=== PATIENT | male | born 1990 | race Caucasian/White ===

== ENCOUNTER → 2019-03-30 | Outpatient (CLI) | payer MEDICARE | LOC: LAB EV 13:44 → LAB SHORT 13:44 | DX: R53.83 Other fatigue (principal) | CPT/HCPCS: 84443 ==

== ENCOUNTER 2023-03-07 04:37 | Emergency (ER) | payer OTHER ==
[~2023-03-07] VITALS: Ht 182.9 cm; Wt 158.8 kg
[2023-03-07] MEDS ORDERED: PROP10 PO (04:59)
[2023-03-07] MEDS ORDERED: GABA100 PO (04:59)
[2023-03-07] MEDS ORDERED: CLON.2 PO (04:59)
[2023-03-07] MEDS ORDERED: IBU800 M1 PO (05:00)
[2023-03-07 06:01] VITALS: BP 135/86
== END 2023-03-07 05:55 | disposition home or self-care (01) ==
LOC: ER 04:37
DX: R00.2 Palpitations (principal); I10 Essential (primary) hypertension; F17.210 Nicotine dependence, cigarettes, uncomplicated; Z79.899 Other long term (current) drug therapy
CPT/HCPCS: 93005; 93010

== ENCOUNTER → 2023-05-06 | Outpatient (CLI) | payer OTHER ==
[~2023-05-06] MED LIST: CLON.2 PO; GABA100 PO; IBU800 M1 PO; PROP10 PO
[2023-05-06 10:28] LABS: BASOPHILS ABSOLUTE AUTO 0.07 K/mm3 (0.00-0.23); BASOPHILS PERCENT AUTO 1 % (0-2); EOSINOPHILS PERCENT AUTO 1 % (0-6); Hematocrit 46.7 % (37.0-53.0); Hemoglobin 16.1 g/dL (13.5-17.5); IMMATURE GRAN ABSOLUTE AUTO 0.03 K/mm3 (0.00-0.10); IMMATURE GRAN PERCENT AUTO 0 % (0-1); LYMPHOCYTES ABSOLUTE AUTO 2.42 K/mm3 (0.84-5.20); LYMPHOCYTES PERCENT AUTO 29 % (21-46); MONOCYTES ABSOLUTE AUTO 0.74 K/mm3 (0.16-1.47); MONOCYTES PERCENT AUTO 9 % (4-13); Mean Corpuscular HGB 32.7 pg (26.0-34.0); Mean Corpuscular HGB Conc 34.5 g/dL (31.5-36.5); Mean Corpuscular Volume 95 fL (80-100); Mean Platelet Volume 8.8 fL (9.1-12.4); NEUTROPHILS ABSOLUTE AUTO 4.99 K/mm3 (1.96-9.15); NEUTROPHILS PERCENT AUTO 60 % (41-73); Platelet Count 231 K/mm3 (150-400); RDW Coefficient Variation 13.1 % (11.7-14.2); RDW Standard Deviation 45.4 fL (35.1-46.3); Red Blood Cell Count 4.93 M/mm3 (4.30-5.90); White Blood Cell Count 8.35 K/mm3 (4.00-11.30)
[2023-05-06 10:50] LABS: Albumin, Blood 3.8 g/dL (3.4-5.0); Albumin/Globulin Ratio 0.9 (0.8-1.8); Bilirubin, Total 0.5 mg/dL (0.1-1.0); Bun/Creatinine Ratio 6.3 (12.0-20.0); Calcium, Blood 8.9 mg/dL (8.5-10.1); Creatinine, Blood 0.96 mg/dL (0.60-1.20); Globulin, Blood 4.2 g/dL (2.2-4.0); Potassium, Blood 3.5 mmol/L (3.5-5.5)
== END ==
LOC: LAB SHORT 10:23 → LAB 10:23
PROVIDERS: Physician Assistant Medical
DX: R00.0 Tachycardia, unspecified (principal)
CPT/HCPCS: 80053; 83735; 84484; 85025

== ENCOUNTER 2023-05-10 22:11 | Emergency (ER) | payer OTHER ==
[~2023-05-10] VITALS: Ht 182.9 cm; Wt 154.2 kg
[2023-05-10 22:57] LABS: BASOPHILS ABSOLUTE AUTO 0.06 K/mm3 (0.00-0.23); BASOPHILS PERCENT AUTO 1 % (0-2); EOSINOPHILS ABSOLUTE AUTO 0.08 K/mm3 (0.00-0.68); EOSINOPHILS PERCENT AUTO 1 % (0-6); Hematocrit 46.6 % (37.0-53.0); Hemoglobin 16.1 g/dL (13.5-17.5); IMMATURE GRAN ABSOLUTE AUTO 0.06 K/mm3 (0.00-0.10); IMMATURE GRAN PERCENT AUTO 1 % (0-1); LYMPHOCYTES ABSOLUTE AUTO 3.11 K/mm3 (0.84-5.20); LYMPHOCYTES PERCENT AUTO 30 % (21-46); MONOCYTES ABSOLUTE AUTO 0.84 K/mm3 (0.16-1.47); MONOCYTES PERCENT AUTO 8 % (4-13); Mean Corpuscular HGB 31.9 pg (26.0-34.0); Mean Corpuscular HGB Conc 34.5 g/dL (31.5-36.5); Mean Corpuscular Volume 92 fL (80-100); Mean Platelet Volume 9.1 fL (9.1-12.4); NEUTROPHILS ABSOLUTE AUTO 6.08 K/mm3 (1.96-9.15); NEUTROPHILS PERCENT AUTO 59 % (41-73); Platelet Count 248 K/mm3 (150-400); RDW Coefficient Variation 12.7 % (11.7-14.2); RDW Standard Deviation 43.2 fL (35.1-46.3); Red Blood Cell Count 5.05 M/mm3 (4.30-5.90); White Blood Cell Count 10.23 K/mm3 (4.00-11.30)
[2023-05-10 23:16] LABS: Albumin, Blood 3.7 g/dL (3.4-5.0); Albumin/Globulin Ratio 0.9 (0.8-1.8); Bilirubin, Total 0.5 mg/dL (0.1-1.0); Bun/Creatinine Ratio 17.3 (12.0-20.0); Creatinine, Blood 0.92 mg/dL (0.60-1.20); Magnesium, Blood 1.9 mg/dL (1.6-2.4); Potassium, Blood 3.3 mmol/L (3.5-5.5); Total Protein, Blood 7.7 g/dL (6.4-8.2)
[2023-05-10 23:50] LABS: Free Thyroxine 0.94 ng/dL (0.70-1.60); Thyroid Stimulating Hormone 5.14 uIU/mL (0.360-4.800); Triiodothyronine, Free 3.47 pg/mL (2.18-3.98)
[2023-05-11 02:00] VITALS: BP 129/89
== END 2023-05-11 02:55 | disposition home or self-care (01) ==
LOC: ER 22:11
PROVIDERS: Student in an Organized Health Care Education/Training Program
DX: R07.9 Chest pain, unspecified (principal); E87.6 Hypokalemia; Z79.899 Other long term (current) drug therapy; I10 Essential (primary) hypertension; G47.30 Sleep apnea, unspecified; F17.290 Nicotine dependence, other tobacco product, uncomplicated; E66.9 Obesity, unspecified
CPT/HCPCS: 71046; 80053; 83735; 84439; 84443; 84481; 84484; 85025; 93005; 93010; 96361; 96374; 99285-25; A9270; J1885; J2405; J7030

== ENCOUNTER 2023-07-03 06:43 | Emergency (ER) | payer OTHER ==
[~2023-07-03] VITALS: Ht 182.9 cm; Wt 154.2 kg
[2023-07-03 08:18] LABS: BASOPHILS ABSOLUTE AUTO 0.05 K/mm3 (0.00-0.23); BASOPHILS PERCENT AUTO 1 % (0-2); EOSINOPHILS ABSOLUTE AUTO 0.11 K/mm3 (0.00-0.68); EOSINOPHILS PERCENT AUTO 2 % (0-6); Hematocrit 41.7 % (37.0-53.0); Hemoglobin 14.3 g/dL (13.5-17.5); IMMATURE GRAN ABSOLUTE AUTO 0.03 K/mm3 (0.00-0.10); IMMATURE GRAN PERCENT AUTO 0 % (0-1); LYMPHOCYTES ABSOLUTE AUTO 2.09 K/mm3 (0.84-5.20); LYMPHOCYTES PERCENT AUTO 29 % (21-46); MONOCYTES ABSOLUTE AUTO 0.47 K/mm3 (0.16-1.47); MONOCYTES PERCENT AUTO 7 % (4-13); Mean Corpuscular HGB 33.6 pg (26.0-34.0); Mean Corpuscular HGB Conc 34.3 g/dL (31.5-36.5); Mean Corpuscular Volume 98 fL (80-100); Mean Platelet Volume 9.2 fL (9.1-12.4); NEUTROPHILS ABSOLUTE AUTO 4.49 K/mm3 (1.96-9.15); NEUTROPHILS PERCENT AUTO 62 % (41-73); Platelet Count 148 K/mm3 (150-400); RDW Coefficient Variation 12.7 % (11.7-14.2); RDW Standard Deviation 45.2 fL (35.1-46.3); Red Blood Cell Count 4.26 M/mm3 (4.30-5.90); White Blood Cell Count 7.24 K/mm3 (4.00-11.30)
[2023-07-03 08:41] LABS: Albumin, Blood 3.4 g/dL (3.4-5.0); Albumin/Globulin Ratio 0.9 (0.8-1.8); Bilirubin, Total 0.5 mg/dL (0.1-1.0); Calcium, Blood 7.9 mg/dL (8.5-10.1); Creatinine, Blood 0.86 mg/dL (0.60-1.20); Globulin, Blood 3.6 g/dL (2.2-4.0); Magnesium, Blood 1.9 mg/dL (1.6-2.4); Potassium, Blood 3.4 mmol/L (3.5-5.5)
[2023-07-03 08:48] LABS: Influenza A, PCR NEGATIVE (NEGATIVE); Influenza B, PCR NEGATIVE (NEGATIVE); Resp Syncytial Virus, PCR NEGATIVE (NEGATIVE); SARS-Cov-2 (COVID-19) PCR, MMC NEGATIVE (NEGATIVE)
[2023-07-03] MEDS ORDERED: MECL25 PO (09:24)
[2023-07-03 09:28] VITALS: BP 122/78
== END 2023-07-03 09:30 | disposition home or self-care (01) ==
LOC: ER 06:43
PROVIDERS: Emergency Medicine
DX: R42 Dizziness and giddiness (principal); F17.290 Nicotine dependence, other tobacco product, uncomplicated; I10 Essential (primary) hypertension; E66.9 Obesity, unspecified; Z79.899 Other long term (current) drug therapy; Z20.822 Contact with and (suspected) exposure to COVID-19
CPT/HCPCS: 0241U; 80053; 83735; 85025; 96361; 96374; 99284-25; A9270; J2405; J7030

== ENCOUNTER 2023-10-25 10:44 | Emergency (ER) | payer OTHER ==
[~2023-10-25] VITALS: Ht 177.8 cm; Wt 158.8 kg
[~2023-10-25 10:44] MED LIST changes: +MECL25 PO
[2023-10-25 11:15] VITALS: BP 160/100
== END 2023-10-25 13:00 | disposition home or self-care (01) ==
LOC: ER 10:44
DX: S51.811A Laceration without foreign body of right forearm, initial encounter (principal); F10.129 Alcohol abuse with intoxication, unspecified; W26.0XXA Contact with knife, initial encounter; Z88.8 Allergy status to other drugs, medicaments and biological substances; I10 Essential (primary) hypertension; G47.30 Sleep apnea, unspecified; F17.290 Nicotine dependence, other tobacco product, uncomplicated
CPT/HCPCS: 12006; 90471; 90714; 99284-25

== ENCOUNTER 2023-11-08 01:15 | Emergency (ER) | payer OTHER ==
[~2023-11-08] VITALS: Ht 182.9 cm; Wt 154.2 kg
[2023-11-08 01:52] LABS: BASOPHILS ABSOLUTE AUTO 0.08 K/mm3 (0.00-0.23); BASOPHILS PERCENT AUTO 1 % (0-2); EOSINOPHILS ABSOLUTE AUTO 0.07 K/mm3 (0.00-0.68); EOSINOPHILS PERCENT AUTO 1 % (0-6); Hematocrit 44.9 % (37.0-53.0); Hemoglobin 15.6 g/dL (13.5-17.5); IMMATURE GRAN ABSOLUTE AUTO 0.07 K/mm3 (0.00-0.10); IMMATURE GRAN PERCENT AUTO 1 % (0-1); LYMPHOCYTES ABSOLUTE AUTO 1.59 K/mm3 (0.84-5.20); LYMPHOCYTES PERCENT AUTO 16 % (21-46); MONOCYTES ABSOLUTE AUTO 0.94 K/mm3 (0.16-1.47); MONOCYTES PERCENT AUTO 9 % (4-13); Mean Corpuscular HGB 32.7 pg (26.0-34.0); Mean Corpuscular HGB Conc 34.7 g/dL (31.5-36.5); Mean Corpuscular Volume 94 fL (80-100); Mean Platelet Volume 8.9 fL (9.1-12.4); NEUTROPHILS ABSOLUTE AUTO 7.49 K/mm3 (1.96-9.15); NEUTROPHILS PERCENT AUTO 73 % (41-73); NRBC ABSOLUTE 0.02 K/mm3 (0.00-0.02); NRBC Auto 0.2 /100 WBC (0.0-0.2); Platelet Count 201 K/mm3 (150-400); RDW Coefficient Variation 12.5 % (11.7-14.2); RDW Standard Deviation 43.6 fL (35.1-46.3); Red Blood Cell Count 4.77 M/mm3 (4.30-5.90); White Blood Cell Count 10.24 K/mm3 (4.00-11.30)
[2023-11-08 01:55] LABS: Source, Urine Voided
[2023-11-08 01:56] LABS: Albumin, Blood 3.8 g/dL (3.4-5.0); Albumin/Globulin Ratio 0.9 (0.8-1.8); Bilirubin, Total 1.7 mg/dL (0.1-1.0); Calcium, Blood 8.8 mg/dL (8.5-10.1); Creatinine, Blood 0.79 mg/dL (0.60-1.20); Globulin, Blood 4.1 g/dL (2.2-4.0); Potassium, Blood 3.4 mmol/L (3.5-5.5); Total Protein, Blood 7.9 g/dL (6.4-8.2)
[2023-11-08 01:58] LABS: Blood, Urine 1+ (Neg); Glucose Qualitative, Urine Neg (Neg); Ketones, Urine 4+ (Neg); Leukocyte Esterase, Urine 1+ (Neg); Nitrite, Urine Neg (Neg); Protein, Urine 3+ (Neg); Urobilinogen, Urine 3+ (Normal)
[2023-11-08 02:04] LABS: Amorphous Light (0-Heavy); Appearance, Urine Hazy (Clear); Bacteria Rare /hpf; Bilirubin, Urine 2+ (Neg); Color, Urine Amber (P-Yellow); Mucus Mod (0-Heavy); Red Blood Cells, Urine 0-2 /hpf (0-2); Squamous Epithelial Cells Rare /hpf (Few)
[2023-11-08 02:08] LABS: U Amphetamine Screen Not Detected; U Barbituate Screen Not Detected; U Benzodiazapine Screen Not Detected; U Buprenorphine Screen Not Detected; U Cannabinoids Screen Not Detected; U Cocaine Screen Not Detected; U Methadone Screen Not Detected; U Methamphetamine Screen Not Detected; U Opiates Screen Not Detected; U Oxycodone Screen Not Detected; U Phencyclidine Screen Not Detected
[2023-11-08 02:55] VITALS: BP 166/96
[2023-11-08] MEDS ORDERED: QUETIAPINE FUM300 M1 PO (03:08)
[2023-11-08] MEDS ORDERED: ZOLOFT50 MG (03:08)
[2023-11-08] MEDS ORDERED: PROPRANOLOL HCL80 MG PO (03:08)
[2023-11-08] MEDS ORDERED: NICO21TP TOP (03:09)
[2023-11-08] MEDS ORDERED: EUTHYROX25 MC1 PO (03:10)
[2023-11-11] MEDS ORDERED: EUTHYROX25 MC1 PO (20:08)
[2023-11-11] MEDS ORDERED: GABA300 (20:09)
[2023-11-11] MEDS ORDERED: ZOCOR20 MG (20:09)
== END 2023-11-08 03:00 | disposition home or self-care (01) ==
LOC: ER 01:15
PROVIDERS: Emergency Medicine
DX: E86.0 Dehydration (principal); F10.229 Alcohol dependence with intoxication, unspecified; Y90.0 Blood alcohol level of less than 20 mg/100 ml; F17.290 Nicotine dependence, other tobacco product, uncomplicated; I10 Essential (primary) hypertension; G47.30 Sleep apnea, unspecified; Z79.899 Other long term (current) drug therapy
CPT/HCPCS: 80053; 81001; 82550; 83605; 83690; 84484; 85025; 93005; 93010; 99283-25; J7030

== ENCOUNTER 2023-11-16 10:54 | Inpatient (IN) | payer OTHER, MEDICAID ==
[2023-11-16] VITALS (9 sets, daily range): BP systolic 110–153; BP diastolic 57–117
[~2023-11-16] VITALS: Ht 182.9 cm; Wt 165.5 kg
[~2023-11-16 10:54] MED LIST changes: +B-1100 M1 PO; +EUTHYROX25 MC1 PO; +GABA300; +MULVITA PO; +NICO21TP TOP; +PROPRANOLOL HCL80 MG PO; +QUETIAPINE FUM300 M1 PO; +ZOCOR20 MG PO; +ZOLOFT50 MG
[2023-11-16 12:26] LABS: Base Excess Venous 1.1 mmol/L; Bicarbonate Venous 25.4 mmol/L (24.0-30.0); PCO2 Venous 38.7 mmHg (38-42); pH Blood Venous 7.43 (7.34-7.37)
[2023-11-16 12:28] LABS: BASOPHILS ABSOLUTE AUTO 0.09 K/mm3 (0.00-0.23); BASOPHILS PERCENT AUTO 1 % (0-2); EOSINOPHILS ABSOLUTE AUTO 0.08 K/mm3 (0.00-0.68); EOSINOPHILS PERCENT AUTO 1 % (0-6); Hematocrit 41.2 % (37.0-53.0); Hemoglobin 13.4 g/dL (13.5-17.5); IMMATURE GRAN ABSOLUTE AUTO 0.21 K/mm3 (0.00-0.10); IMMATURE GRAN PERCENT AUTO 3 % (0-1); LYMPHOCYTES ABSOLUTE AUTO 1.83 K/mm3 (0.84-5.20); LYMPHOCYTES PERCENT AUTO 29 % (21-46); MONOCYTES ABSOLUTE AUTO 0.91 K/mm3 (0.16-1.47); MONOCYTES PERCENT AUTO 15 % (4-13); Mean Corpuscular HGB 33.4 pg (26.0-34.0); Mean Corpuscular HGB Conc 32.5 g/dL (31.5-36.5); Mean Corpuscular Volume 103 fL (80-100); Mean Platelet Volume 9.1 fL (9.1-12.4); NEUTROPHILS ABSOLUTE AUTO 3.14 K/mm3 (1.96-9.15); NEUTROPHILS PERCENT AUTO 50 % (41-73); NRBC Auto 1.6 /100 WBC (0.0-0.2); Platelet Count 189 K/mm3 (150-400); RDW Coefficient Variation 14.7 % (11.7-14.2); RDW Standard Deviation 54.5 fL (35.1-46.3); Red Blood Cell Count 4.01 M/mm3 (4.30-5.90); White Blood Cell Count 6.26 K/mm3 (4.00-11.30)
[2023-11-16 12:57] LABS: Albumin/Globulin Ratio 0.9 (0.8-1.8); Bun/Creatinine Ratio 4.4 (12.0-20.0); Calcium, Blood 8.7 mg/dL (8.5-10.1); Creatinine, Blood 0.91 mg/dL (0.60-1.20); Globulin, Blood 3.5 g/dL (2.2-4.0); Potassium, Blood 3.7 mmol/L (3.5-5.5); Total Protein, Blood 6.5 g/dL (6.4-8.2)
[2023-11-16] MEDS ORDERED: SERT50 PO (13:10)
[2023-11-16 16:04] LABS: Source, Urine Clean Catch
[2023-11-16 16:24] LABS: Appearance, Urine Clear (Clear); Bilirubin, Urine Neg (Neg); Blood, Urine Neg (Neg); Color, Urine Yellow (P-Yellow); Glucose Qualitative, Urine Neg (Neg); Ketones, Urine Neg (Neg); Leukocyte Esterase, Urine Neg (Neg); Nitrite, Urine Neg (Neg); Protein, Urine 1+ (Neg); Specific Gravity, Urine 1.015 (1.003-1.022); Urobilinogen, Urine NORM (Normal)
--- NOTE | 2023-11-16 16:51 | NUR ---
ASSUMPTION OF CARE PT TX TO ICU ROOM 3 FROM ER, ABLE TO SLIDE OVER TO ICU BED WITHOUT ASSISTANCE. PT A&OX4, FOLLOWING COMMANDS, DELUCA. C/O LIGHT SENSITIVITY AND MILD HEADACHE, DENIES NAUSEA & VOMITING. STATED HE WAS HAVING VISUAL HALLUCINATIONS EARLIER TODAY, NONE AT THIS TIME. CIWA CURRENTLY 3. VSS. PT DENIES HAVING ANY ALCOHOLIC BEVERAGES SINCE 11/11/23 WHEN HE WAS ADMITTED THE FIRST TIME FOR ETOH WITHDRAWS. UPON DISCHARGE PT DID NOT PICKUP HIS PRESCRIPTIONS DUE TO PHARMACY BEING CLOSED AND BEGAN HAVING WITHDRAW SYMPTOMS THIS AM. MEDICATED WITH 2MG ATIVAN X 1 IN ER FOR CIWA >15.
[2023-11-16 20:36] LABS: U Amphetamine Screen Not Detected; U Barbituate Screen DETECTED; U Benzodiazapine Screen DETECTED; U Buprenorphine Screen Not Detected; U Cannabinoids Screen Not Detected; U Cocaine Screen Not Detected; U Methadone Screen Not Detected; U Methamphetamine Screen Not Detected; U Opiates Screen Not Detected; U Oxycodone Screen Not Detected; U Phencyclidine Screen Not Detected
--- NOTE | 2023-11-16 20:43 | NUR ---
ASSUMPTION OF CARE BEDSIDE SHIFT REPORT RECEIVED FROM DAYSHIFT RN. PT RESTING IN BED, ALERT AND ORIENTED. PT MOVES ALL EXTREMITIES EQUALLY BILATERALLY, ABLE TO MAKE NEEDS KNOWN. PT CIWA OF 6. HR 100'S SINUS, MAP >65. PT USES CPAP AT NIGHT, PT ON CPAP CURRENTLY WITH AUTO 12-20, NO O2 BLEED IN, OXYGEN SATURATION >95%. PT DENIES PAIN AT TIME OF ASSESSMENT. ABDOMEN SOFT AND ROUND, BOWEL TONES ACTIVE IN ALL FOUR QUADRANTS. PT USES URINAL TO VOID. PIV TO LEFT HAND SL. BED IN LOWEST POSIITON, CALL LIGHT WITHIN REACH, CARE CONTINUES.
--- NOTE | 2023-11-16 23:03 | NUR ---
ASSUMED CARE OF PT 2300. REPORT RECEIVED FROM NAMRATA FAULKNER FROM ICU. PT ARRIVED TO THE UNIT AT [address] [place] PT WAS ABLE TO STAND INDEPENDENTLY WITH SBA IF NEEDED. TRANSFERRED TO MEDICAL BED. DECLINED TO CHANGE INTO A GOWN AT THIS TIME. A/O X4. REPORTS HEADACHE, MILD TREMOR TO TOUCH, OTHERWISE NEGATIVE CIWAA AT THIS TIME. RESPIRATORY THERAPY IN THE ROOM TO SET UP CUSTOMER ENGINEERING SPECIALIST AND CPAP. REGIONAL PROJECT MANAGER OBTAINING VSS AT THIS TIME. PT DENIES FURHTER NEEDS, DROWSY AND REPORTS HE WANTS TO GO TO SLEEP. BED ALARM IN PLACE, CALL LIGHT WITHIN REACH. NEEDS ARE MET AT THIS TIME.
--- NOTE | 2023-11-16 23:08 | NUR ---
PT UPDATE REPORT GIVEN TO MEDICAL FLOOR RN. PT TRANSFERED TO ROOM 358 VIA HOSPITAL BED. PT SLEEPING BUT AROUSABLE, PT TRANSFERED SELF WITH ASSISTANCE TO HOSPITAL BED IN NEW ROOM.
[2023-11-17 04:01] VITALS: BP 141/83
--- NOTE | 2023-11-17 04:22 | NUR ---
PT SLEEPING WITH CPAP IN PLACE MOST OF THE EVENING, SELF REMOVED, DECLINED TO CONTINUE WEARING. WELT BEATER IN PLACE, PT IS ABLE TO MAINTAIN OXYGEN SATURATION >95% ON ROOM AIR. CIWAA MAINTAINS <8 DURIN THE SHIFT. NO ACUTE EVENTS. ALL NEEDS ADDRESSED, SAFETY MEASURED TAKEN, BED ALARM REMAINS ON AT THIS TIME R/T TO DIZZINESS WITH AMBULATION.
[2023-11-17 05:13] LABS: BASOPHILS ABSOLUTE AUTO 0.07 K/mm3 (0.00-0.23); BASOPHILS PERCENT AUTO 1 % (0-2); EOSINOPHILS ABSOLUTE AUTO 0.07 K/mm3 (0.00-0.68); EOSINOPHILS PERCENT AUTO 1 % (0-6); Hematocrit 38.5 % (37.0-53.0); Hemoglobin 12.1 g/dL (13.5-17.5); IMMATURE GRAN ABSOLUTE AUTO 0.19 K/mm3 (0.00-0.10); IMMATURE GRAN PERCENT AUTO 4 % (0-1); LYMPHOCYTES ABSOLUTE AUTO 2.24 K/mm3 (0.84-5.20); LYMPHOCYTES PERCENT AUTO 42 % (21-46); MONOCYTES ABSOLUTE AUTO 0.88 K/mm3 (0.16-1.47); MONOCYTES PERCENT AUTO 16 % (4-13); Mean Corpuscular HGB 33.2 pg (26.0-34.0); Mean Corpuscular HGB Conc 31.4 g/dL (31.5-36.5); Mean Corpuscular Volume 106 fL (80-100); Mean Platelet Volume 9.3 fL (9.1-12.4); NEUTROPHILS ABSOLUTE AUTO 1.95 K/mm3 (1.96-9.15); NEUTROPHILS PERCENT AUTO 36 % (41-73); NRBC ABSOLUTE 0.08 K/mm3 (0.00-0.02); NRBC Auto 1.5 /100 WBC (0.0-0.2); Platelet Count 171 K/mm3 (150-400); RDW Coefficient Variation 15.2 % (11.7-14.2); RDW Standard Deviation 57.7 fL (35.1-46.3); Red Blood Cell Count 3.65 M/mm3 (4.30-5.90)
[2023-11-17 06:37] LABS: Albumin, Blood 2.8 g/dL (3.4-5.0); Albumin/Globulin Ratio 0.9 (0.8-1.8); Bilirubin, Total 0.9 mg/dL (0.1-1.0); Bun/Creatinine Ratio 4.6 (12.0-20.0); Calcium, Blood 8.5 mg/dL (8.5-10.1); Creatinine, Blood 0.88 mg/dL (0.60-1.20); Globulin, Blood 3.1 g/dL (2.2-4.0); Potassium, Blood 3.7 mmol/L (3.5-5.5); Total Protein, Blood 5.9 g/dL (6.4-8.2)
[2023-11-17 07:32] VITALS: BP 116/62
[2023-11-17 14:36] VITALS: BP 119/76
--- NOTE | 2023-11-17 15:56 | NUR ---
SHIFT SUMMARY: AT 0850, CIWA SCORE WAS 8; MEDICATED WITH LIBRIUM 25 MG WITH ADEQUATE RELIEF OF SXS. JUANIS IS A&O X 4, PLEASANT AND COOPERATIVE. ON RA, USING CPAP AT HS WITH O2 @ 3 L/MIN BLEED IN PER RT. C/O 10/22 HEADACHE. INDEPENDENT IN ROOM. DIDN'T WANT TO GO HOME THIS MORNING, BUT THIS AFTERNOON STATED HE THOUGHT HE WAS READY FOR D/C. WAS WORRIED ABOUT HIS MEDICATIONS BEING RETURNED TO THE SHELF AT HIS PHARMACY (FROM PREVIOUS D/C), BUT THIS AUTHOR ADVISED HIM TO CALL THE PHARMACY AND TELL THEM HE WAS HOSPITALIZED AND NOT TO PUT MEDS BACK ON SHELF, THAT HE WOULD PICK THEM UP IN THE NEXT COUPLE OF DAYS.
[2023-11-17 20:14] VITALS: BP 131/71
[2023-11-18 03:15] VITALS: BP 110/61
--- NOTE | 2023-11-18 05:52 | NUR ---
SHIFT SUMMARY NO CHANGES OVER NIGHT, A&O X4, ON RA WHILE AWAKE, CPAP WHILE SLEEPING, VSS, INDEPENDENT IN ROOM, CALLS PRN FOR ASSISTANCE, TOLERATING PO INTAKE, VOIDING WNL, NO REQUESTS AT TIME, RESP UNLABORED, CALL LIGHT IN REACH
[2023-11-18 06:12] LABS: BASOPHILS ABSOLUTE AUTO 0.04 K/mm3 (0.00-0.23); BASOPHILS PERCENT AUTO 1 % (0-2); EOSINOPHILS ABSOLUTE AUTO 0.07 K/mm3 (0.00-0.68); EOSINOPHILS PERCENT AUTO 2 % (0-6); Hematocrit 36.6 % (37.0-53.0); Hemoglobin 11.9 g/dL (13.5-17.5); IMMATURE GRAN ABSOLUTE AUTO 0.09 K/mm3 (0.00-0.10); IMMATURE GRAN PERCENT AUTO 2 % (0-1); LYMPHOCYTES ABSOLUTE AUTO 1.88 K/mm3 (0.84-5.20); LYMPHOCYTES PERCENT AUTO 46 % (21-46); MONOCYTES ABSOLUTE AUTO 0.63 K/mm3 (0.16-1.47); MONOCYTES PERCENT AUTO 15 % (4-13); Mean Corpuscular HGB 33.5 pg (26.0-34.0); Mean Corpuscular HGB Conc 32.5 g/dL (31.5-36.5); Mean Corpuscular Volume 103 fL (80-100); Mean Platelet Volume 8.8 fL (9.1-12.4); NEUTROPHILS ABSOLUTE AUTO 1.41 K/mm3 (1.96-9.15); NEUTROPHILS PERCENT AUTO 34 % (41-73); NRBC ABSOLUTE 0.06 K/mm3 (0.00-0.02); NRBC Auto 1.5 /100 WBC (0.0-0.2); Platelet Count 191 K/mm3 (150-400); RDW Coefficient Variation 15.4 % (11.7-14.2); RDW Standard Deviation 58.2 fL (35.1-46.3); Red Blood Cell Count 3.55 M/mm3 (4.30-5.90); White Blood Cell Count 4.12 K/mm3 (4.00-11.30)
[2023-11-18 06:44] LABS: Albumin, Blood 2.6 g/dL (3.4-5.0); Albumin/Globulin Ratio 0.9 (0.8-1.8); Bilirubin, Total 0.7 mg/dL (0.1-1.0); Bun/Creatinine Ratio 4.2 (12.0-20.0); Calcium, Blood 8.2 mg/dL (8.5-10.1); Creatinine, Blood 0.94 mg/dL (0.60-1.20); Magnesium, Blood 1.8 mg/dL (1.6-2.4); Potassium, Blood 3.3 mmol/L (3.5-5.5); Total Protein, Blood 5.6 g/dL (6.4-8.2)
[2023-11-18 07:32] VITALS: BP 141/77
[2023-11-18] MEDS ORDERED: ONDA4 PO (14:38)
[2023-11-18 15:23] VITALS: BP 119/67
--- NOTE | 2023-11-18 16:03 | NUR ---
PATIENT DISCHARGED TO HOME, WILL DRIVE HIMSELF. HAS HAD NO SEDATING MEDICATIONS TODAY. IV SALINE LOCK REMOVED EARLIER. VERBALIZED UNDERSTANDING OF D/C INSTRUCTIONS. OFF UNIT VIA W/C AT 1600. NO PERSONAL BELONGINGS LEFT BEHIND IN ROOM.
== END 2023-11-18 16:01 | disposition home or self-care (01) | DRG 896 ==
LOC: ER 10:54 → ICUE 14:27 → MEDS 14:27 → ICUE 16:08 → MEDS 22:51
PROVIDERS: Emergency Medicine; Family Medicine; Student in an Organized Health Care Education/Training Program; ADMIT Internal Medicine
DX: F10.231 Alcohol dependence with withdrawal delirium (principal); G92.8 Other toxic encephalopathy; F84.5 Asperger's syndrome; E87.1 Hypo-osmolality and hyponatremia; E66.9 Obesity, unspecified; I10 Essential (primary) hypertension; G47.30 Sleep apnea, unspecified; F32.A Depression, unspecified; K76.0 Fatty (change of) liver, not elsewhere classified; F17.290 Nicotine dependence, other tobacco product, uncomplicated; G62.9 Polyneuropathy, unspecified; I25.10 Atherosclerotic heart disease of native coronary artery without angina pectoris; F41.9 Anxiety disorder, unspecified; E03.9 Hypothyroidism, unspecified; Z71.41 Alcohol abuse counseling and surveillance of alcoholic; Z79.890 Hormone replacement therapy
CPT/HCPCS: 36415; 80053; 82803; 83735; 84100; 85025; 94660; 94762; 96361; 96365; 96375; 99285-25; A9270; J1650; J2060; J2405; J3411; J7030